=== PATIENT | male | born 1975 | race Caucasian/White ===

== ENCOUNTER 2025-06-20 10:25 | Emergency (ER) | payer BC ==
[~2025-06-20] VITALS: Ht 188 cm; Wt 89.8 kg
--- NOTE | 2025-06-20 11:34 | HMCIMG ---
EXAM: CT Head Without IV contrast. CLINICAL HISTORY: fall, cervical injury TECHNIQUE: Axial computed tomography images of the head/brain without intravenous contrast. COMPARISON: None provided. FINDINGS: BRAIN: No evidence of acute hemorrhage. No mass lesion. No CT evidence for acute territorial infarct. No midline shift or extra-axial collections. VENTRICLES: No hydrocephalus. ORBITS: The orbits are unremarkable. SINUSES AND MASTOIDS: The paranasal sinuses and mastoid air cells are clear. BONES: No fracture. SOFT TISSUES: Unremarkable. IMPRESSION: No acute intracranial abnormality. /[place]
[2025-06-20 11:36] VITALS: BP 130/78; PULSE 88; RESP 20; TEMP 98.2; O2SAT 98
--- NOTE | 2025-06-20 11:38 | HMCIMG ---
EXAM: CT Cervical Spine Without IV contrast. CLINICAL HISTORY: fall, cervical injury TECHNIQUE: Axial computed tomography images of the cervical spine without intravenous contrast. Sagittal and coronal reformatted images were generated. COMPARISON: None provided. FINDINGS: ALIGNMENT: No dislocation. Straightening of the cervical spine which can be seen with paraspinal muscle spasm. DEGENERATIVE CHANGES: No significant canal stenosis or neural foraminal narrowing evident. SOFT TISSUES: The prevertebral soft tissues are within normal limits. BONES: No acute fracture or aggressive appearing osseous lesion. IMPRESSION: No acute cervical spine abnormality. Straightening of the cervical spine which can be seen with paraspinal muscle spasm. /[place]
--- NOTE | 2025-06-20 11:49 | ERN ---
General Chief Complaint: Neck Injury Stated Complaint: NECK PAIN Time Seen by MD: 10:29 Time Seen by Midlevel: 10:29 Source: patient History of Present Illness Initial Comments The patient is a 50-year-old male presenting to the emergency department with persistent neck pain after a fall. Patient states he was walking down the stairs when he accidentally slipped and fell backwards hitting the back of his head. Denies loss of consciousness. Denies being on any blood thinners. Jerry sanders has been having persistent neck pain since the fall. Allergies: Coded Allergies: Penicillins (Unverified Allergy, Unknown, 06/20/25) Sulfa (Sulfonamide Antibiotics) (Unverified Allergy, Unknown, 06/20/25) pseudoephedrine (Unverified Allergy, Unknown, 06/20/25) Past Medical History Past Medical History: Diabetes-Type II Past Surgical History: Cholecystectomy ROS Dictation CONSTITUTIONAL: Negative except for HPI HEAD/FACE: Negative except for HPI EENT: Negative except for HPI RESPIRATORY: Negative except for HPI GASTROINTESTINAL/ABDOMINAL: Negative except for HPI GENITOURINARY: Negative except for HPI MUSCULOSKELETAL: Negative except for HPI INTEGUMENTARY: Negative except for HPI NEUROLOGICAL/PSYCH: Negative except for HPI HEMATOLOGIC/LYMPHATIC: Negative except for HPI All Systems Negative, Except as noted above. 13 point review of systems assessed and all negative except for above. Physical Exam Physical Exam Dictation Vital Signs reviewed General Appearance: Alert, oriented x 3, no acute distress, well developed, nourished. Head and Face: non-traumatic. Eyes: PERRL, pink conjunctivas, eyelid no trauma, anterior chamber with arcus senilis. Ears: Pinnas intact and no signs of trauma or erythema ear canals clear and no discharge TM no erythema Nose: No discharge, no bleeding. Oropharynx: Mouth normal, tongue pink, pharynx clear,no erythema, tonsils no exudates, no abscesses noted, mucous membrane moist Neck: Supple, tenderness over the C2 region, no thyromegaly, no masses, no JVD, no bruits Breast:Deferred Chest:No tenderness, no crepitus, no paradoxical movement, no retractions Lungs:Clear, well-ventilated, symmetric, no rales, no wheezing, no rhonchi, no stridor, good breath sounds bilaterally Heart: Regular rate, regular rhythm, no murmur, no gallops Vascular: no peripheral edema, Abdomen: Soft, positive bowel sounds, nondistended, no guarding, nontender, no rebound, no masses no hepatomegaly, no splenomegaly, no Dawn's sign, no hernias. Rectal: Deferred Genital: Deferred Neurological: Normal speech, motor function intact, sensory function intact Musculoskeletal: Neck nontender, full range of motion, back nontender, full range of motion, Extremities: nontender, full range of motion Skin: Color pink, dry, no turgor, no rash, no lacerations, no abrasions, no contusions. Lymphatic: Deferred MDM MDM: Differential diagnosis: Acute fracture, acute dislocation, subluxation There are no social concerns with this patient. Prescription drug management Prescriptions will include: None Medical management and examination interpretation discussions were had by me with other qualified healthcare professionals as indicated for the patient's care. ED Course Orders Procedure Category Date Status Time Ct Head/Brain W/O CT 06/20/25 Resulted Contrast 10:46 Ct Cervical Spine W/O CT 06/20/25 Resulted Contrast 10:46 Vital Signs Date Time Temp Pulse Resp B/P (MAP) Pulse Ox O2 Delivery O2 Flow Rate FiO2 06/20/25 11:36 98.2 88 20 130/78 98 Room Air* 0 21 06/20/25 10:26 98.2 88 20 130/78 98 DX & DISP Disposition: Discharge Departure Impression: Primary Impression: Closed head injury Additional Impression: Cervical strain Condition: Stable Additional Instructions: Your CT scan of the head and neck show no acute fracture or dislocation. Your symptoms are most likely related to a cervical strain. You may take Tylenol and Motrin as needed for pain. Follow up with your primary care doctor. Return to the ER for any new or worsening symptoms Referrals: SELF,REFERRAL (PCP) Time of Disposition: 11:45 I have reviewed the case, and I agree with, Diagnosis and Plan I performed the substantive portion of the visit. I have reviewed and personally made and approve the management plan that is documented in the note by myself or the MATTHEW. I acknowledge for responsibility for the patient's management plan. LEONARD RAJPUT PAC Jun 20, 2025 11:49
== END 2025-06-20 12:17 | disposition home or self-care (01) ==
LOC: EDH 10:25
DX: S16.1XXA Strain of muscle, fascia and tendon at neck level, initial encounter (principal); S09.90XA Unspecified injury of head, initial encounter; E11.9 Type 2 diabetes mellitus without complications; Z88.0 Allergy status to penicillin; Z88.2 Allergy status to sulfonamides; Z90.49 Acquired absence of other specified parts of digestive tract; W01.10XA Fall on same level from slipping, tripping and stumbling with subsequent striking against unspecified object, initial encounter; W01.0XXA Fall on same level from slipping, tripping and stumbling without subsequent striking against object, initial encounter; Y93.01 Activity, walking, marching and hiking; Y92.89 Other specified places as the place of occurrence of the external cause; Y99.8 Other external cause status
CPT/HCPCS: 70450; 72125; 99284